=== PATIENT | male | born 1985 ===

== ENCOUNTER 2024-03-07 17:38 | Emergency (ER) | payer OTHER, SELFPAY ==
[2024-03-07 17:42] VITALS: BP 144/92
[2024-03-07 17:58] LABS: % Basophils 0.2 % (0-2); % Eosinophils 0.5 % (0-6); % Immature Granulocytes 0.3 % (0-0.5); % Lymphocytes 17.3 % (20.5-51.1); % Monocytes 6.7 % (1.7-9.3); Absolute Eosinophils 0.1 10^3/uL (0-0.7); Absolute Immature Granulocytes 0.1 10^3/uL (0-0.05); Absolute Lymphocytes 2.5 10^3/uL (1.2-3.4); Absolute Neutrophils 10.7 10^3/uL (1.4-6.5); Hematocrit 45.6 % (39.0-52.0); Mean Corp Hgb Conc. 35.1 g/dL (33.0-37.0); Mean Corpuscular Hgb 30.5 pg (27.0-31.0); Mean Corpuscular Volume 86.9 fL (80.0-94.0); Nucleated Red Blood Cells % 0 % (-); Platelet Count 271 10^3/uL (130-400); Red Blood Cell Count 5.25 10^6/uL (4.70-6.10); White Blood Cell Count 14.3 10^3/uL (4.8-10.8)
[2024-03-07 18:19] LABS: ALT (SGPT) 25 U/L (0-50); AST (SGOT) 25 U/L (17-59); Albumin 4.8 g/dl (3.5-5.0); Alkaline Phosphatase 70 U/L (38-126); Blood Urea Nitrogen 17 mg/dl (9-20); Calcium 9.2 mg/dl (8.4-10.2); Carbon Dioxide 28 mmol/L (22-30); Chloride 100 mmol/L (98-107); Glucose 108 mg/dl (70-99); Potassium 3.8 mmol/L (3.5-5.1); Sodium 139 mmol/L (135-145); Total Bilirubin 2.1 mg/dl (0.2-1.3); Total Protein 7.8 g/dl (6.3-8.2); eGFR > 60.00
--- NOTE | 2024-03-07 21:23 | ED.SKININJ ---
HPI-Injury
<Mercedez Schuler RELEASE OF INFORMATION CLERK - Last Filed: 03/07/24 22:04>
General
Chief Complaint: Skin Problem
Source: patient
Exam Limitations: none
Time Seen by Provider: 03/07/24 20:26
Nursing documentation reviewed up to this point in time: agreed with
History of Present Illness-Injury
Initial Injury comments:
38-year-old male with no past medical history states he scraped the outer aspect of his left lower leg on his bed about 9 days ago. 2 days ago he felt an area of itching on his leg and looked down and saw that the area surrounding the scrape was
red. He denies F/C. Denies N/V. Pain minimal in leg.
Went to UC yesterday got rx for Keflex 500 mg TID, went to PCP today and got rx for Bactrim DS BID. Started both of them this a.m.
Past History
<Mercedez Schuler, RELEASE OF INFORMATION CLERK - Last Filed: 03/07/24 22:04>
Past History
ED Past Medical History: None
ED Past Surgical History: None
Social History
Tobacco: Non-smoker
Alcohol: Occasional
Personal:
Living: with family
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
Review of Systems
<Mercedez Schuler, RELEASE OF INFORMATION CLERK - Last Filed: 03/07/24 22:04>
Review of Systems
Allergies reviewed?: Yes
All Other Systems: ROS reviewed and negative except as documented in HPI and ROS
Constitutional: Denies fever or chills
ABD/GI: Denies nausea or vomiting
Musculoskeletal: Reports other
Skin: Reports other (abrasion outer left lower leg with surrounding redness and mild swelling)
Neurological: Denies numbness
Skin Exam
<Mercedez Schuler, RELEASE OF INFORMATION CLERK - Last Filed: 03/07/24 22:04>
Abrasion
Lateral Left lower leg just below the knee:
Description of abrasion: deep/clean (1 cm long with 1 cm round deep red erythema, no drainage, 15 x 15 cm mild erythema surrounding, mainly below the abrasion, marked for observation. No palpable abscess)
Phy Exam
<Mercedez Schuler, RELEASE OF INFORMATION CLERK - Last Filed: 03/07/24 22:04>
Physical Exam
Physical Exam:
PHYSICAL EXAMINATION:
General: no apparent distress, not acutely ill
Neuro: alert and oriented.
Psychiatric: well kept. interactive and cooperative
Musculoskeletal: Moves with ease
Skin: Warm, pink.
Course
<Mercedez Schuler, RELEASE OF INFORMATION CLERK - Last Filed: 03/07/24 22:04>
Orders/Labs/Results
Orders:
Orders
03/07/24 17:53
Complete Blood Count/With Diff Urgent
Comprehensive Metabolic Panel Urgent
Abnormal Lab Results
03/07/24
17:53
WBC 14.3 H 10^3/uL
(4.8-10.8)
Abs Immat Gran (auto) 0.1 H 10^3/uL
(0-0.05)
Absolute Neuts (auto) 10.7 H 10^3/uL
(1.4-6.5)
Absolute Monos (auto) 1.0 H 10^3/uL
(0.1-0.6)
Lymphocytes % 17.3 L %
(20.5-51.1)
Glucose 108 H mg/dl
(70-99)
Total Bilirubin 2.1 H mg/dl
(0.2-1.3)
03/07/24 17:53
03/07/24 17:53
Vital Signs
Initial and Last Documented VS:
Initial Vital Signs
Temp Pulse Resp BP Pulse Ox
98.2 F 105 18 144/92 99
03/07/24 17:42 03/07/24 17:42 03/07/24 17:42 03/07/24 17:42 03/07/24 17:42
Last Documented Vital Signs
Temp Pulse Resp BP Pulse Ox
98.2 F 89 16 138/92 100
03/07/24 17:42 03/07/24 21:28 03/07/24 21:28 03/07/24 21:28 03/07/24 21:28
Corporate Strategy Associate consulted with Physician
Corporate Strategy Associate consulted with physician?: Yes
Name of Physician Consulted: Mary
<Asa Hernandez, DO - Last Filed: 03/07/24 22:29>
Orders/Labs/Results
Orders:
Orders
03/07/24 17:53
Complete Blood Count/With Diff Urgent
Comprehensive Metabolic Panel Urgent
Abnormal Lab Results
03/07/24
17:53
WBC 14.3 H 10^3/uL
(4.8-10.8)
Abs Immat Gran (auto) 0.1 H 10^3/uL
(0-0.05)
Absolute Neuts (auto) 10.7 H 10^3/uL
(1.4-6.5)
Absolute Monos (auto) 1.0 H 10^3/uL
(0.1-0.6)
Lymphocytes % 17.3 L %
(20.5-51.1)
Glucose 108 H mg/dl
(70-99)
Total Bilirubin 2.1 H mg/dl
(0.2-1.3)
03/07/24 17:53
03/07/24 17:53
Vital Signs
Initial and Last Documented VS:
Initial Vital Signs
Temp Pulse Resp BP Pulse Ox
98.2 F 105 18 144/92 99
03/07/24 17:42 03/07/24 17:42 03/07/24 17:42 03/07/24 17:42 03/07/24 17:42
Last Documented Vital Signs
Temp Pulse Resp BP Pulse Ox
98.2 F 89 16 138/92 100
03/07/24 17:42 03/07/24 21:28 03/07/24 21:28 03/07/24 21:28 03/07/24 21:28
<Mercedez Schuler RELEASE OF INFORMATION CLERK - Last Filed: 03/07/24 22:04>
MDM/Problems Addressed
Differential Diagnosis Includes:
cellulitis, abscess
MDM/Problems Addressed:
38-year-old male with no past medical history states he scraped the outer aspect of his left lower leg on his bed about 9 days ago. 2 days ago he felt an area of itching on his leg and looked down and saw that the area surrounding the scrape was
red. He denies F/C. Denies N/V. Pain minimal in leg.
Went to UC yesterday got rx for Keflex 500 mg TID, went to PCP today and got rx for Bactrim DS BID. Started both of them this a.m.
Afebrile
Pt with no systemic symptoms, has only had 1/2 day on antibiotics, no lymphangitis, erythema mainly distal to abrasion. No significant swelling
Recommend rest, elevation, if no improvement on 2-3 days of antibiotic or if gets suddenly worse, fever etc return
Dr. Hernandez in to evaluated and agrees.
Rx for Mupirocin ointment sent to his pharmacy
Wound cleansed with NSS, atbx ointment applied and nonstick dressing
15 x 15 cm area of erythema marked for observation
<Mercedez Schuler RELEASE OF INFORMATION CLERK - Last Filed: 03/07/24 22:04>
*Critical Care Note
Total Time (30-74mins, 75-104mins- exclusive of procedures): Not Applicable
ED Attending Note
<Mercedez Schuler RELEASE OF INFORMATION CLERK - Last Filed: 03/07/24 22:04>
-
Portions of this chart may have been created with voice recognition software.� Occasional wrong word or��sound alike� substitutions may have occurred due to the inherent limitations of voice recognition software.
<Asa Hernandez, DO - Last Filed: 03/07/24 22:29>
ED Attending Note
Patient seen and examined by attending physician: Yes
ED Attending Note:
I have reviewed and agree with history and treatment plan by Yokasta schuler. Patient with mild cellulitis on left proximal lower leg. No abscess palpated. Continue treatment with Keflex and Bactrim. Return precautions given.
Discharge Plan
Departure
Patient Disposition: Home (Routine Discharge)
Date of Disposition: 03/07/24
Time of Disposition: 21:21
Patient with high blood pressure during this ER visit?: No
Condition: Good
Discharge Problem:
Abrasion of left lower extremity, Cellulitis of left lower extremity
Instructions: Wound Care (DC), Cellulitis (Skin Infection), Adult (DC)
Prescriptions:
New
mupirocin 2 % ointment
1 applic topical TID Qty: 15 0RF
Referrals:
Godwin Gooden PA-C [Family Provider] -
Activity Restrictions/Additional Instructions:
As we discussed, I sent a prescription to your pharmacy for mupirocin ointment
Continue your antibiotics as prescribed
Rest for the next 2 days with your leg elevated to the level of your heart is much as you can.
Return here immediately for fever above 100.4, vomiting, increasing swelling or redness, if the redness spreads to inches or more past the area marked or feeling sicker in any way.
Interventions
Interventions:
*Risk Screen - Suicide Last Done: 03/07/24 17:42
*General Assessment Last Done: 03/07/24 17:42
*Neglect/Abuse Screening Last Done: 03/07/24 17:42
ED- Fall Risk Assessment Last Done: 03/07/24 20:33
*ED COVID-19 Vaccine History Last Done: 03/07/24 20:33
*Nursing Disposition Last Done: 03/07/24 21:28
ED-Skin Assessment Last Done: 03/07/24 21:28
Discharge Date and Time
Discharge Date/Time: 03/07/24 21:28
Print Language: ROMANSH
[2024-03-07 21:28] VITALS: BP 138/92
== END 2024-03-07 21:28 | disposition home or self-care (01) ==
LOC: EMR 17:38
PROVIDERS: Emergency Medicine; EMERGENCY PHYSICIAN Emergency Medicine; FAMILY PHYSICIAN Physician Assistant Medical
DX: S80.812A Abrasion, left lower leg, initial encounter (principal); L03.116 Cellulitis of left lower limb; X58.XXXA Exposure to other specified factors, initial encounter
CPT/HCPCS: 99283; 80053; 85025